=== PATIENT | female | born 1950 | race Caucasian/White ===

== ENCOUNTER → 2022-01-20 | Outpatient (CLI) | payer MEDICARE, MEDICAID ==
[2015-04-22 16:50] VITALS: BP 173/71
[~2022-01-20] MED LIST: CHOL400C PO; DOCU50CA9 PO; FERR325T20 PO; HYDR-3165 PO; LOSA25TA11 PO; METO50TA29 PO; MULT-629 PO; OMEP20CA16 PO; POTA99TA PO; RIVA20TA2 PO; SIMV40TA18 PO; TOPI25TA52 PO
[2022-01-20 09:22] LABS: ALBUMIN 3.3 g/dL (3.4-5.0); CALCIUM 8.9 mg/dL (8.5-10.1); CREATININE 1.5 mg/dL (0.6-1.0); PHOSPHORUS 2.8 mg/dL (2.6-4.7)
== END ==
LOC: LAB 08:20
PROVIDERS: ATTEND Internal Medicine Nephrology
DX: I12.9 Hypertensive chronic kidney disease with stage 1 through stage 4 chronic kidney disease, or unspecified chronic kidney disease (principal); N18.32 Chronic kidney disease, stage 3b; R60.9 Edema, unspecified; G47.33 Obstructive sleep apnea (adult) (pediatric); E66.9 Obesity, unspecified; N17.9 Acute kidney failure, unspecified; Z68.43 Body mass index [BMI] 50.0-59.9, adult
CPT/HCPCS: 36415; 80069